=== PATIENT | female | born 2000 | race Two or more races ===

== ENCOUNTER → 2024-05-22 | Outpatient (CLI) | payer MEDICAID, SELFPAY ==
--- NOTE | 2024-05-22 14:00 | XR_ITS ---
Examination: Transvaginal ultrasound of the pelvis, complete Technique: Transvaginal sonographic images pelvis performed using murray scale imaging Exam date and time: May 22, 2024 1504 hours INDICATIONS: Irregular heavy menses 3 months FINDINGS: Uterus 5.5 x 3.0 x 4.0 cm Endometrial stripe 0.2 cm No uterine mass or intrauterine gestation Right ovary 2.1 x 1.3 x 1.7 cm arterial flow 16mm follicular cyst Left ovary obscured by bowel gas IMPRESSION: No uterine mass or intrauterine gestation.
--- NOTE | 2024-05-22 14:00 | XR_ITS ---
Examination: Pelvic ultrasound, transabdominal, complete Technique: Transabdominal ultrasound of the pelvis performed using grayscale imaging Date and time of exam: May 22, 2024 1421 hours INDICATIONS: Irregular heavy bleeding irregular heavy menses 3 months FINDINGS: Uterus 6.5 x 2.8 x 3.8 cm anteverted No uterine masses or intrauterine gestation. Endometrial stripe 0.5 cm Right ovary 3.1 x 2.5 x 1.9 cm arterial flow, 11 mm x 12 mm follicle Left ovary 3.2 x 1.1 x 2.6 cm arterial flow small follicles IMPRESSION: Negative examination
== END | disposition home or self-care (01) ==
PROVIDERS: PCP Nurse Practitioner Family; Referring Provider Nurse Practitioner Family; Visit Provider Nurse Practitioner Family
DX: N92.0 Excessive and frequent menstruation with regular cycle (principal)
CPT/HCPCS: 76830; 76856